=== PATIENT | female | born 1940 | race Caucasian/White ===

== ENCOUNTER → 2017-12-19 | Outpatient (CLI) | payer OTHER ==
[~2017-12-19] VITALS: Ht 162.6 cm; Wt 62.6 kg
[~2017-12-19] MED LIST: ACETAMINOPHEN650 M5 PO; ASPIR 8181 MG PO; ASPIRIN81 M2 PO; BENTYL 20 MG TA20 M1 PO; BENTYL20 MG PO; CIPROFLOXACIN500 M1 PO; DEXILANT60 MG PO; FISH OIL 1,001000 M2 PO; FLAGYL500 MG PO; FLOMAX0.4 MG PO; GLUCOPHAGE500 MG PO; GLUMETZA500 PO; HYDROCODONE-AP1 EAC6; IRON TOP; LOPRESSOR100 MG PO; MAG-OXIDE400 MG PO; MAGOX 400400 MG PO; MAVIK4 MG PO; MOBIC15 MG PO; MULTIVITAMINS1 EAC7 PO; NEURONTIN 400400 M1 PO; NORVASC5 MG PO; OMEPRAZOLE 20 M20 MG PO; PERCOCET 7.5-31 EACH PO; POTASSIUM20 PO; SIMVASTATIN40 MG PO; TRAMADOL 50 MG50 MG PO; TRANDOLAPRIL4 MG PO
--- NOTE | ~2017-12-19 | P ---
[facility] [place] [address] PROCEDURE REPORT Name: JEEVAN HENRY [facility] [id number] Admission: 12/19/17 Attend Phys: Alexandre Clark Discharge: Date of : 36 Report #: [id number] THIS REPORT FOR: //name// CC: Alexandre Galicia MD DATE OF SERVICE: 12/19/2017 PROCEDURE PERFORMED: Upper endoscopy. HISTORY OF PRESENT ILLNESS: The patient is a 77-year-old female who was diagnosed with colon cancer in 2014, in the sigmoid colon. She underwent resection by Dr. Galicia on 05/26/2015. She did not require chemotherapy. She had a followup colonoscopy a year later by Dr. Galicia that showed the anastomosis site well healed. No other abnormalities were noted. The patient has recurrent bright red blood per rectum. Dr. Galicia had been following, he did perform ligation of several hemorrhoids, but she continues to have some bleeding. She underwent a flexible sigmoidoscopy in November 2017. The anastomosis looked well. Biopsies were negative of the anastomosis. There is possible history of some darker stools at times. In speaking with the patient, she says she tends to have a red blood with each bowel movement. She is on aspirin and omeprazole. Plan is for upper endoscopy today. PROCEDURE: The risks and benefits of the procedure were explained to the patient, those risks including, but not limited to bleeding, perforation, and the risk of sedation. She understood these risks and gave informed consent. Sedation was given using propofol per anesthesia. Next, using a standard Fujinon upper endoscope, the scope was placed in the patient's mouth and advanced under direct vision through the esophagus, stomach, and into the second portion of the duodenum. The larynx was normal in appearance. The esophagus was normal throughout. The GE junction was normal. Overall, the gastric mucosa was normal. The pylorus was normal and patent. The duodenal bulb, first and second portion were all normal. The scope was then withdrawn and the procedure terminated. The patient tolerated the procedure well. IMPRESSION: Normal upper endoscopy. RECOMMENDATIONS: 1. Continue PPI therapy. 2. A script for Analpram was given today to be used on a p.r.n. basis. If the patient has continued bleeding, may consider further workup including an M2 capsule endoscopy. [address] [address] PROCEDURE REPORT Name: CARLJEEVAN Ferreira Room #: REG [facility] Munira#: [id number] Admission: 12/19/17 Attend Phys: Alexandre Clark Discharge: Date of : 36 Report #: [id number] Thank you for allowing me to participate in her care. <ELECTRONICALLY SIGNED> By: Alexandre Toure MD 12/21/17 1231 [id number] Alexandre Toure MD /ruby
== END | disposition home or self-care (01) ==
LOC: GI 08:24
DX: K62.5 Hemorrhage of anus and rectum (principal); I10 Essential (primary) hypertension; I25.10 Atherosclerotic heart disease of native coronary artery without angina pectoris; E11.9 Type 2 diabetes mellitus without complications; E78.5 Hyperlipidemia, unspecified; K21.9 Gastro-esophageal reflux disease without esophagitis; M79.7 Fibromyalgia; D64.9 Anemia, unspecified; Z91.041 Radiographic dye allergy status; Z98.61 Coronary angioplasty status; Z98.0 Intestinal bypass and anastomosis status; Z85.038 Personal history of other malignant neoplasm of large intestine; Z90.49 Acquired absence of other specified parts of digestive tract; Z90.710 Acquired absence of both cervix and uterus; Z79.82 Long term (current) use of aspirin; Z79.899 Other long term (current) drug therapy
CPT/HCPCS: 62110; 62900